=== PATIENT | male | born 1990 | race Caucasian/White ===

== ENCOUNTER 2018-03-04 21:40 | Emergency (ER) | payer OTHER ==
[2018-03-04] MEDS ORDERED: Morphine INJ* 10 MG/ML 1 ML CARPUJECT IV ONE (23:29)
[2018-03-04] MEDS ORDERED: Ketorolac INJ* 15 MG/ML 1 ML VIAL IV ONE (23:29)
[2018-03-04] MEDS ORDERED: NS 0.9% 1000 ML* 1,000 ML IV ONE (23:29)
[2018-03-04] MEDS ORDERED: Morphine VIAL* 4 MG/ML VIAL (1 ml vial) IV ONE (23:29)
[2018-03-04] MEDS ORDERED: Ondansetron INJ* 2 MG/ML VIAL IV ONE (23:30)
[2018-03-04] MEDS ORDERED: Ondansetron 40 MG VIAL* 2 MG/ML 20 ML VIAL IV ONE (23:45)
[2018-03-04 23:46] LABS: ABS Basophils 0.1 10^3/ul (0-0.2); ABS Eosinophils 0.4 10^3/ul (0-0.6); ABS Lymphocytes 1.5 10^3/ul (1.0-4.8); ABS Monocytes 1.1 10^3/ul (0-0.8); ABS Neutrophils 7.3 10^3/ul (1.5-7.7); ABS Nucleated RBC 0 10^3/ul; Eosinophil % 4.1 % (0-6); Hematocrit 41 % (42-52); Hemoglobin 14.1 g/dl (14.0-18.0); Lymphocyte % 14.6 % (25-47); Mean Corpuscular HGB Conc 34 g/dl (31-36); Mean Corpuscular Hemoglobin 31 pg (27-31); Mean Corpuscular Volume 89 fL (80-94); Mean Platelet Volume 8.8 um3 (7.4-10.4); Nucleated Red Blood Cells % 0; Platelet Count 188 10^3/ul (150-450); Red Blood Count 4.63 10^6/ul (4.0-5.4); Red Cell Distribution Width 13 % (10.5-15); White Blood Count 10.4 10^3/ul (3.5-10.8)
[2018-03-05 00:01] LABS: EGFR Non-African American 83.3 (>60)
[2018-03-05 01:43] VITALS: BP 124/73
--- NOTE | 2018-03-05 18:58 | ED ---
Branden Yeung Stephanie, scribed for Charly Bee MD on 03/04/18 at 2335 . Abdominal Pain/Male - HPI Summary HPI Summary: The pt is a 27 y/o M presenting to the ED with c/o abd pain that began at 15:00 today. He states he believes he is having exacerbation of his Crohns. Symptoms include nausea and bloating in LLQ. He states he has been eating 1x per day in order to minimize his symptoms. The pt reports a hx of Crohns flare ups every 3 months. - History of Current Complaint Chief Complaint: EDAbdPain Stated Complaint: NAUSEA/DIARHEA Time Seen by Provider: 03/04/18 23:22 Hx Obtained From: Patient Onset/Duration: Sudden Onset, Lasting Hours, Still Present Timing: Constant Severity Currently: Moderate Pain Intensity: 7 Pain Scale Used: 0-10 Numeric Location: Discrete At: LLQ Radiates: No Aggravating Factor(s): Nothing Alleviating Factor(s): Nothing Associated Signs And Symptoms: Positive: Nausea, Other - abd bloating - Allergies/Home Medications Allergies/Adverse Reactions: Allergies Allergy/AdvReac Type Severity Reaction Status Date / Time No Known Allergies Allergy Verified 12/28/16 08:30 PMH/Surg Hx/FS Hx/Imm Hx Endocrine/Hematology History: Denies: Hx Diabetes Cardiovascular History: Denies: Hx Hypertension, Hx Pacemaker/ICD Respiratory History: Denies: Hx Asthma Sensory History: Reports: Hx Contacts or Glasses - GLASSES Denies: Hx Hearing Aid Opthamlomology History: Reports: Hx Contacts or Glasses - GLASSES Psychiatric History: Denies: Hx Panic Disorder - Surgical History Surgery Procedure, Year, and Place: WISDOM TEETH EXTRACTED 2007 [facility] Hx Anesthesia Reactions: No Infectious Disease History: No Infectious Disease History: Denies: Traveled Outside the [place] in Last 30 Days - Family History Known Family History: Negative: Renal Disease - Social History Occupation: Student Lives: With Family Hx Substance Use: No Substance Use Type: Reports: None Review of Systems Negative: Fever Positive: Abdominal Pain, Nausea, Other - LLQ bloating Negative: Slurred Speech All Other Systems Reviewed And Are Negative: Yes Physical Exam - Summary Physical Exam Summary: Appearance: Well-appearing, Well-nourished, lying in bed comfortably Skin: Warm, dry, no obvious rash Eyes: sclera anicteric, no conjunctiva pallor ENT: mucous membranes moist, pharynx appears normal, no lesions present Neck: Supple, nontender Respiratory: Clear to auscultation, no signs of respiratory distress Cardiovascular: Normal S1, S2. No murmurs. Normal distal pulses in tibial and radial bilaterally. Abdomen: Soft, nontender, normal active bowel sounds present Musculoskeletal: Normal, Strength/ROM Intact Neurological: A&Ox3, awake and alert, mentation is normal, speech is fluent and appropriate Psychiatric: affect is normal, does not appear anxious or depressed Triage Information Reviewed: Yes Vital Signs On Initial Exam: Initial Vitals Temp Pulse Resp BP Pulse Ox 98.2 F 83 20 130/75 96 03/04/18 21:46 03/04/18 21:46 03/04/18 21:46 03/04/18 21:46 03/04/18 21:46 Vital Signs Reviewed: Yes Diagnostics - Vital Signs Vital Signs Temp Pulse Resp BP Pulse Ox 03/04/18 22:40 75 96 03/04/18 22:39 84 139/80 96 03/04/18 21:46 98.2 F 83 20 130/75 96 - Laboratory Lab Results: Lab Results 03/04/18 03/04/18 Range/Units 23:39 23:39 WBC 10.4 (3.5-10.8) 10^3/ul RBC 4.63 (4.0-5.4) 10^6/ul Hgb 14.1 (14.0-18.0) g/dl Hct 41 L (42-52) % MCV 89 (80-94) fL MCH 31 (27-31) pg MCHC 34 (31-36) g/dl RDW 13 (10.5-15) % Plt Count 188 (150-450) 10^3/ul MPV 8.8 (7.4-10.4) um3 Neut % (Auto) 70.3 (38-83) % Lymph % (Auto) 14.6 L (25-47) % Loving % (Auto) 10.4 H (0-7) % Eos % (Auto) 4.1 (0-6) % Baso % (Auto) 0.6 (0-2) % Absolute Neuts (auto) 7.3 (1.5-7.7) 10^3/ul Absolute Lymphs (auto) 1.5 (1.0-4.8) 10^3/ul Absolute Monos (auto) 1.1 H (0-0.8) 10^3/ul Absolute Eos (auto) 0.4 (0-0.6) 10^3/ul Absolute Basos (auto) 0.1 (0-0.2) 10^3/ul Absolute Nucleated RBC 0 10^3/ul Nucleated RBC % 0 Sodium 139 (139-145) mmol/L Potassium 3.9 (3.5-5.0) mmol/L Chloride 109 (101-111) mmol/L Carbon Dioxide 27 (22-32) mmol/L Anion Gap 3 (2-11) mmol/L BUN 10 (6-24) mg/dL Creatinine 1.08 (0.67-1.17) mg/dL Est GFR ( Amer) 107.1 (>60) Est GFR (Non-Af Amer) 83.3 (>60) BUN/Creatinine Ratio 9.3 (8-20) Glucose 87 (70-100) mg/dL Calcium 9.4 (8.6-10.3) mg/dL Total Bilirubin 0.50 (0.2-1.0) mg/dL AST 20 (13-39) U/L ALT 16 (7-52) U/L Alkaline Phosphatase 53 (34-104) U/L Total Protein 6.5 (6.4-8.9) g/dL Albumin 4.1 (3.2-5.2) g/dL Globulin 2.4 (2-4) g/dL Albumin/Globulin Ratio 1.7 (1-3) Lipase 23 (11.0-82.0) U/L Result Diagrams: 03/04/18 23:39 03/04/18 23:39 Lab Statement: Any lab studies that have been ordered have been reviewed, and results considered in the medical decision making process. Abdominal Pain Fem Course/Dx - Diagnoses Provider Diagnoses: Crohns disease of small intestine Discharge - Sign-Out/Discharge Documenting (check all that apply): Discharge/Admit/Transfer - Discharge Plan Condition: Good Disposition: HOME Prescriptions: Ondansetron TAB* [Zofran 4 MG Tab*] 8 mg PO Q6H PRN #10 tab PRN Reason: Nausea Oxycodone HCl/Acetaminophen [Percocet 5-325 mg Tablet] 1 each PO Q4HR PRN #25 tablet MDD 8 tabs PRN Reason: Pain predniSONE TAB* [Deltasone TAB*] 10 mg PO DAILY #70 tab Patient Education Materials: Crohn Disease (ED) Referrals: Wali Woo MD [Primary Care Provider] - - Billing Disposition and Condition Condition: GOOD Disposition: HOME The documentation as recorded by the Branden joyce Stephanie accurately reflects the service I personally performed and the decisions made by me, Charly Bee MD.
== END 2018-03-05 01:51 | disposition home or self-care (01) ==
LOC: ED 21:40
DX: K50.00 Crohn's disease of small intestine without complications (principal); R11.0 Nausea
CPT/HCPCS: 36415; 80053; 83690; 85025; 96374; 96375; 99283; J1885; J2270; J2405